=== PATIENT | male | born 1975 | race Caucasian/White ===

== ENCOUNTER 2021-02-11 18:55 | Emergency (ER) | payer OTHER, SELFPAY ==
[2021-02-11 20:11] VITALS: BP 120/85; PULSE 62; RESP 16; TEMP 37.1; O2SAT 100; BMI 24.7
[2021-02-11] MEDS: Fluorescein Sodium STRIP 1 STRIP EYE-BOTH (20:47)
[2021-02-11] MEDS: Tetracaine HCl/PF 0.5% Oph Sol 4 ML DROPS 2 DROP EYE-BOTH (20:47)
--- NOTE | 2021-02-11 21:04 | ED_ITS ---
HPI - Eye Problem General Chief complaint: Eye Problems <TEAGAN Soto Last Filed: 02/11/21 21:10> Stated complaint: FB object in eye <TEAGAN Soto Last Filed: 02/11/21 21:10> Time Seen by Provider: 02/11/21 20:31 <TEAGAN Soto Last Filed: 02/11/21 21:10> Source: patient <TEAGAN Soto Last Filed: 02/11/21 21:10> Mode of arrival: ambulatory <TEAGAN Soto Last Filed: 02/11/21 21:10> Limitations: no limitations <TEAGAN Soto Last Filed: 02/11/21 21:10> History of Present Illness HPI Narrative: 45-year-old male presenting to the ED with complaints of a possible foreign body into the left eye after he was helping a friend cut some plastic tasha he felt like something went into his eye although he is unable to see any foreign bodies. He reports he has been using [id number] eyedrops and no symptomatic relief. Reports he is up-to-date on his tetanus received did less than 5 years ago. Denies any contacts or eyeglasses usage. He reports he has mild blurry vision otherwise the rest of his vision is normal. Denies any other injuries complaints or concerns at this time. <TEAGAN Soto - Last Filed: 02/11/21 21:10> MD chief complaint: eye redness and foreign body <TEAGAN Soto Last Filed: 02/11/21 21:10> Onset (ago): day(s) (Occurred yesterday) <TEAGAN Soto Last Filed: 02/11/21 21:10> Onset description: sudden (While cutting plastic tasha) <TEAGAN Soto Last Filed: 02/11/21 21:10> Duration: constant <TEAGAN Soto Last Filed: 02/11/21 21:10> Location: left eye <TEAGAN Soto Last Filed: 02/11/21 21:10> Eye Symptoms: burning, redness, pain, foreign body sensation, itching, discharge and blurry vision <TEAGAN Soto Last Filed: 02/11/21 21:10> Place: home (Friend's home) <TEAGAN Soto Last Filed: 02/11/21 21:10> Mechanism: occurred while hammering/grinding (And sawing plastic tasha) <TEAGAN Partida Last Filed: 02/11/21 21:10> Severity: moderate <TEAGAN Soto Last Filed: 02/11/21 21:10> If Pain, Quality: burning and aching <TEAGAN Soto Last Filed: 02/11/21 21:10> Associated symptoms: none <TEAGAN Soto Last Filed: 02/11/21 21:10> Treatments Prior to Arrival: irrigated eye and OTC eye drops <TEAGAN Soto Last Filed: 02/11/21 21:10> Related Data Patient tetanus UTD: Yes <TEAGAN Soto Last Filed: 02/11/21 21:10> Home medications: Previous Rx's Medication Instructions Recorded erythromycin 0.5 inch OPHTHALMIC (EYE) QID #3.5 02/11/21 g ibuprofen 800 mg PO Q8H PRN #14 tab 02/11/21 oxycodone-acetaminophen [Percocet] 1 tab PO Q6H PRN #10 tab 02/11/21 <TEAGAN Soto Last Filed: 02/11/21 21:10> Allergies/adverse reactions: Allergies Allergy/AdvReac Type Severity Reaction Status Date / Time No Known Allergies Allergy Verified 02/11/21 20:14 <TEAGAN Soto Last Filed: 02/11/21 21:10> Review of Systems Review of Systems: Constitutional : No fevers, no chills, No changes in activity, No lethargy, No recent prior head injury, No agitation, No increased fussiness ENT/Mouth : No Ear Pain, No Nasal discharge/drainage Eyes: + blurry vision/foreign body sensation/watery drainage/purulent drainage/redness, No Eye Pain, No Swelling, No Photophobia, no eyelid edema, no contact lens uses, no recent welding, no bleeding Cardiovascular : No Chest Pain, No SOB Respiratory : No Cough Gastrointestinal : No Nausea, No Vomiting, No abdominal Pain Genitourinary : No Dysuria, No Urinary Frequency, No Urinary Incontinence, No Urgency, No Flank Pain Musculoskeletal : No joint pain, No neck stiffness, No back pain/injury Skin : No lacerations Neuro : No unsteady gait, No Paresthesias, No Loss of Consciousness, No altered mental status, No dizziness, No Headache Denies past medical history of HIV, recent trauma, coagulopathy, recent spinal/ epidural procedure, new medication, URI symptoms, close contacts with similar symptoms, tick bite, or known CO2 exposure. <TEAGAN Soto - Last Filed: 02/11/21 21:10> Yes all other systems are reviewed and are negative <TEAGAN Soto - Last Filed: 02/11/21 21:10> [facility] Past Medical History Attestation statement: The following information was validated with the patient. <TEAGAN Soto - Last Filed: 02/11/21 21:10> Medical History: Medical History No known health problems <TEAGAN Soto - Last Filed: 02/11/21 21:10> Social History Social History: Social History Alcohol intake: never Smoked in Last 30 Days: No Use of substances other than those prescribed or required for medical reasons: No Any prior treatment program specific to substance use: No Advance Directives: No Advance Directives Information Provided: Yes <TEAGAN Soto - Last Filed: 02/11/21 21:10> Physical Exam Vital Signs: Vital Signs: Last Vital Signs Temp 98.7 F 02/11/21 20:11 Pulse 62 02/11/21 20:11 Resp 16 02/11/21 20:11 BP 120/85 02/11/21 20:11 Pulse Ox 100 02/11/21 20:11 Body Mass Index 24.7 vital signs have been reviewed as normal and appeared to be correct. Blood pressure normal. Heart rate normal. Respiration rate normal. Temperature normal. Oxygen saturation normal. <TEAGAN Soto - Last Filed: 02/11/21 21:10> Vital Signs: Last Vital Signs Temp 98.7 F 02/11/21 20:11 Pulse 62 02/11/21 20:11 Resp 16 02/11/21 20:11 BP 120/85 02/11/21 20:11 Pulse Ox 100 02/11/21 20:11 Body Mass Index 24.7 <Gaston Fitzgerald MD - Last Filed: 03/07/21 08:37> Appearance: Alert. Oriented X3. No acute distress. Head: Normal external exam. Normocephalic. Atraumatic. No Mcnulty signs noted. No raccoon eyes noted Eyes: PERRLA. EOMI. Left conjunctiva and sclera noted to have superficial abrasions. No ulcerations or foreign bodies are noted. Right conjunctiva/cornea within normal limits. Funduscopic exam within normal limits. Sclera normal. Eyelids normal. No papilledema noted. Anterior chamber normal. No photophobia noted. ENT: Pharynx normal. Uvula midline. Moist mucous membranes. Neck: Normal inspection. Neck supple. FROM. No adenopathy. Thyroid Normal. No me ningeal signs. No neck mass noted. CVS: Normal heart rate and rhythm. Heart sound normal. No murmurs noted. Pulses normal throughout. Respiratory: No respiratory distress. Painless inspiration. Breath sounds normal. Back: Full range of motion noted. Skin: Skin warm and dry. Normal skin color. Normal skin turgor. No rashes/lesions/lacerations noted. Extremities: Extremities exhibit normal range of motion. Extremities nontender. Neuro: Oriented X 3. No motor deficit. No sensory deficit. Reflexes normal. <TEAGAN Soto - Last Filed: 02/11/21 21:10> Course Course Course Narrative: I have reviewed the chart <Gaston Fitzgerald MD - Last Filed: 03/07/21 08:37> MDM - Eye Problem MDM Narrative Medical decision making narrative: 45-year-old male with corneal and conjunctival abrasions. No ulcerations. He is up-to-date on tetanus. No foreign bodies are noted. Will DC home with antibiotics and symptomatic treatment and referral to Dr. Harley the baffle mounter and to return if any new or worsening symptoms. Patient understands agrees with this plan. <TEAGAN Soto - Last Filed: 02/11/21 21:10> Medical Records Attestation: I reviewed the patient's medical records. <TEAGAN Soto - Last Filed: 02/11/21 21:10> Discharge Plan Discharge Clinical Impression: Corneal abrasion, Abrasion of conjunctiva <TEAGAN Soto - Last Filed: 02/11/21 21:10> Patient Disposition: Home, Self-Care <TEAGAN Soto - Last Filed: 02/11/21 21:10> Instructions: Corneal Abrasion (ED) <TEAGAN Soto - Last Filed: 02/11/21 21:10> Prescriptions: New erythromycin 5 mg/gram (0.5 %) ointment 0.5 inch ophthalmic (eye) QID Qty: 3.5 RF: 0 ibuprofen 800 mg tablet 800 mg PO Q8H PRN (Reason: pain) Qty: 14 RF: 0 oxycodone-acetaminophen [Percocet] 5-325 mg tablet 1 tab PO Q6H PRN (Reason: pain) Qty: 10 RF: 0 <TEAGAN Soto - Last Filed: 02/11/21 21:10> Referrals: David Harley [Physician] - 1 day <TEAGAN Soto - Last Filed: 02/11/21 21:10> Stand Alone Forms: Work/School Release <TEAGAN Soto - Last Filed: 02/11/21 21:10> Interventions: ED Discharge Assessment Last Done: 02/11/21 22:07 <TEAGAN Soto - Last Filed: 02/11/21 21:10> Discharge Date/Time: 02/11/21 22:10 <TEAGAN Soto - Last Filed: 02/11/21 21:10> Print Language: Chadian <TEAGAN Soto - Last Filed: 02/11/21 21:10>
[2021-02-11] MEDS: Erythromycin Base 0.5% Oph Oin 1 GM TUBE 1 CM EYE-LEFT (21:25)
== END 2021-02-11 22:10 | disposition home or self-care (01) ==
PROVIDERS: Emergency Provider Emergency Medicine
DX: S05.02XA Injury of conjunctiva and corneal abrasion without foreign body, left eye, initial encounter (principal); H57.12 Ocular pain, left eye; Y28.9XXA Contact with unspecified sharp object, undetermined intent, initial encounter; Y93.9 Activity, unspecified; Y92.9 Unspecified place or not applicable; Y99.9 Unspecified external cause status; Z79.899 Other long term (current) drug therapy
CPT/HCPCS: 99284